=== PATIENT | female | born 1960 | race Caucasian/White ===

== ENCOUNTER → 2018-01-19 17:09 | Outpatient (CLI) | payer OTHER, SELFPAY ==
--- NOTE | 2018-01-19 | DI.RAD.S_ITS ---
PROCEDURE: XR LUMBAR SPINE 2-3V INDICATIONS: LOW BACK AND SACRAL PAIN TECHNIQUE: 3 views of the lumbar spine were acquired. COMPARISON: None. FINDINGS: Bones: No fracture or focal osseous osseous destruction. Grade 1 retrolisthesis of L2 on L3 and L1 on L2. Mild diffuse facet arthropathy from L4-S1. [id number]-gn-[id number] narrowing of the lumbar disc spaces with relative sparing of L5-S1. There is also lower thoracic discogenic change. Soft tissues: Overlying bowel gas pattern is normal. No suspicious soft tissue calcifications. IMPRESSION: [id number] diffuse lumbar disc degeneration as detailed above. Dictated by: Arturo Ronquillo M.D. on 01/19/2018 at 18:22 Approved by: Arturo Ronquillo M.D. on 01/19/2018 at 18:23
--- NOTE | 2018-01-19 | DI.RAD.S_ITS ---
PROCEDURE: XR SACRUM COCCYX MIN 2V INDICATIONS: LOW BACK AND SACRAL PAIN TECHNIQUE: 3 views of the sacrum and coccyx acquired. COMPARISON: None. FINDINGS: Bones: No fractures or dislocations. No suspicious bony lesions. Bilateral sacroiliac sclerosis without definite erosions or ankylosis. Soft tissues: Visualized bowel gas pattern is normal. No suspicious soft tissue densities. IMPRESSION: No fracture Dictated by: Arturo Ronquillo M.D. on 01/19/2018 at 18:19 Approved by: Arturo Ronquillo M.D. on 01/19/2018 at 18:22
== END ==
PROVIDERS: Visit Provider Chiropractor
DX: M54.5 Low back pain (principal); M43.16 Spondylolisthesis, lumbar region; M51.36 Other intervertebral disc degeneration, lumbar region; M47.816 Spondylosis without myelopathy or radiculopathy, lumbar region; M47.817 Spondylosis without myelopathy or radiculopathy, lumbosacral region; M48.07 Spinal stenosis, lumbosacral region
CPT/HCPCS: 72100; 72220